=== PATIENT | male | born 1970 | race Caucasian/White ===

== ENCOUNTER 2020-12-04 14:32 | Emergency (ER) | payer BC, SELFPAY ==
[2020-12-04 14:33] VITALS: BP 149/89; PULSE 52; RESP 16; TEMP 36.8; O2SAT 94; BMI 24.7
--- NOTE | 2020-12-04 14:35 | HMH.EDSOB ---
ED Disposition Clinical Impression: Acute exacerbation of chronic obstructive airways disease Disposition: Home, Self-Care Condition on Discharge: Good Instructions: DI for Chronic Obstructive Pulmonary Disease Prescriptions: predniSONE [Prednisone 50mg Tab] 50 mg PO DAILY 5 Days #5 tab Transmission Status: Pending to [facility] Albuterol Sulfate [Proair Hfa] 8.5 gm IH QID PRN #1 [id number] PRN Reason: Shortness Of Breath Transmission Status: Pending to [facility] Azithromycin [Z-Noah 250mg Tab*] 250 mg PO UD DOSE PK #6 tab Transmission Status: Pending to [facility] Referrals: Lencho Vital MD [Primary Care Provider] - 3 days - Critical Care Critical Care Time: No Attestation: On , the high probability of a clinically significant, sudden or life threatening deterioration of the following system(s) required my full and direct attention, intervention and personal management. The time I documented below is in addition to time spent performing reported procedures but includes the following listed in this critical care notation. Medical Decision Making - Medical Records Medical records reviewed: Yes: I reviewed the patient's medical records. - Thomas Inquiry Pt receiving controlled substance: No Vital Signs: 12/04/20 14:33 12/04/20 15:33 Temperature 98.2 F Temperature Source Oral Pulse Rate [Right] 52 L 59 L Respiratory Rate 16 Blood Pressure [Right Arm] 149/89 H 129/91 H Blood Pressure Mean [Right Arm] 109 103 Blood Pressure Source [Right Arm] Automatic Cuff Automatic Cuff Blood Pressure Position [Right Arm] Sitting Sitting 02 Sat by Pulse Oximetry 94 L 91 L Oxygen Delivery Method Room Air - Lab Data Lab results reviewed: Yes: I reviewed the patient's lab results. Lab Results 12/04/20 15:42: WBC 8.0, RBC 5.14, Hgb 14.5, Hct 45.5, MCV 88.6, MCH 28.2, MCHC 31.9, RDW 12.7, Plt Count 294, MPV 7.1 L, Neut % (Auto) 65.1, Lymph % (Auto) 21.5, [place] % (Auto) 6.7, Eos % (Auto) 5.6, Baso % (Auto) 1.1, Neut # (Auto) 5.2, Lymph # (Auto) 1.7, [place] # (Auto) 0.5, Eos # (Auto) 0.5 H, Baso # (Auto) 0.1 12/04/20 15:42: Sodium 137, Potassium 4.3, Chloride 102, Carbon Dioxide 30, Anion Gap 9.3, BUN 20, Creatinine 0.90, Estimated Creat Clear 86, Estimated GFR 90, Est GFR ( Amer) 109, Glucose 114 H, Calcium 9.7 12/04/20 15:42: SARS-CoV-2 IgG Ab (Rapid) Negative, SARS-CoV-2 IgM Ab (Rapid) Negative Result diagrams: 12/04/20 15:42 12/04/20 15:42 Orders (Tests/Meds): ED MEDICATIONS Discontinued Medications Generic Name Dose Route Start Last Admin Trade Name Freq PRN Reason Stop Dose Admin Albuterol/Ipratropium 3 ml 12/04/20 14:39 12/04/20 15:52 Albuterol/Ipratropium 3 Ml Neb IH 12/04/20 14:40 Not Given ONCE ONE Albuterol/Ipratropium 2 puff 12/04/20 15:52 12/04/20 15:45 Combivent 20mcg/100mcg Respimat Inhaler 12/04/20 15:53 2 puff ONCE ONE Administration Dexamethasone 10 mg 12/04/20 15:13 Dexamethasone 4mg Tablet PO 12/04/20 15:14 ONCE ONE Dexamethasone Sodium Phosphate 10 mg 12/04/20 15:37 12/04/20 15:49 Dexamethasone 4mg/Ml 5ml Mdv IM 12/04/20 15:38 10 mg ONCE ONE Administration Methylprednisolone Sodium Succinate 125 mg 12/04/20 14:39 Methylprednisolone Sod Succ 125mg Vial IV 12/04/20 14:40 ONCE ONE Miscellaneous 1 unit 12/04/20 15:52 Aerochamber/Optihaler MC 12/04/20 15:53 ONCE ONE - Radiology Data #1 Image(s): Chest Image Reviewed: Yes I reviewed the patient's radiology results, Yes I reviewed the patient's radiology image COPD with biapical pleural thickening and faint opacity in the right upper lobe. Consider chest CT with contrast for further evaluation. Medical Decision Narrative: Patient with wheezing bilaterally, maintaining appropriate oxygen saturations on room air. No significant metabolic derangement or anemia. No leukocytosis or fever that would suggest acute infectiou
--- NOTE | 2020-12-04 14:39 | XR_ITS ---
PROCEDURE: XR CHEST 2V CLINICAL HISTORY: soa Shortness of air, smoker COMPARISON: No exams were available for comparison FINDINGS: The cardiomediastinal silhouette and pulmonary vascularity are within normal limits. COPD. Biapical pleural thickening. Asymmetric thickening noted in the right apex. There is a faint area of increased density in the right suprahilar region. This area measures approximately 16 by 10 mm. The remaining lungs are clear. Degenerative changes of the spine. IMPRESSION: COPD with biapical pleural thickening and faint opacity in the right upper lobe. Consider chest CT with contrast for further evaluation. Dictated by: Igor Gillis MD 12/04/2020 16:14 Igor Gillis MD in [place] 12/04/2020 16:14
[2020-12-04 15:33] VITALS: BP 129/91; PULSE 59; O2SAT 91
[2020-12-04 16:00] VITALS: BP 119/69; PULSE 50; O2SAT 93
[2020-12-04 16:06] LABS: Basophils # 0.1 K/mm3 (0-0.2); Basophils % 1.1 % (0.1-2.0); Eosinophils # 0.5 K/mm3 (0.0-0.4); Eosinophils % 5.6 % (0.1-12.0); Hematocrit 45.5 % (42.0-52.0); Hemoglobin 14.5 g/dL (14.1-18.0); Lymphocytes # 1.7 K/mm3 (0.7-4.5); Lymphocytes % 21.5 % (10-50); Mean Corpuscular HGB Conc 31.9 g/dL (31.8-35.4); Mean Corpuscular Hemoglobin 28.2 pg (27.0-31.2); Mean Corpuscular Volume 88.6 fl (80-94); Mean Platelet Volume 7.1 fl (7.4-10.4); Monocytes # 0.5 K/mm3 (0.1-1.0); Monocytes % 6.7 % (1.7-9.3); Neutrophils # 5.2 K/mm3 (1.8-7.8); Neutrophils % 65.1 % (37.0-80.0); Platelet Count 294 K/mm3 (142-424); Red Blood Count 5.14 M/mm3 (4.60-6.20); Red Cell Distribution Width 12.7 % (11.5-17.5)
[2020-12-04 16:08] LABS: Chloride 102 mmol/L (98-107)
[2020-12-04 16:09] LABS: Potassium 4.3 mmoL/L (3.5-5.1); Sodium 137 mmol/L (136-145)
[2020-12-04 16:11] LABS: Blood Urea Nitrogen 20 mg/dl (9-20); Creatinine Clearance Estimated 86 mL/min (50-200); Estimated Glomerular Filt Rate 90 ml/min (>60); GFR (African American) 109 ML/MIN (>60)
[2020-12-04 16:12] LABS: Anion Gap 9.3 mEq/L (5-15); Calcium 9.7 mg/dl (8.4-10.2); Carbon Dioxide 30 mmol/L (22.0-30.0); Glucose 114 mg/dl (74-100)
[2020-12-04 16:24] LABS: Coronavirus 19 IgG Antibody Negative (Negative); Coronavirus 19 IgM Antibody Negative (Negative)
[2020-12-04 16:30] VITALS: BP 122/71; PULSE 50; O2SAT 93
[2020-12-04 16:57] VITALS: BP 127/83; PULSE 54; RESP 16; TEMP 36.6; O2SAT 96
== END 2020-12-04 16:58 | disposition home or self-care (01) ==
PROVIDERS: Emergency Provider Emergency Medicine; PCP Family Medicine
DX: J44.1 Chronic obstructive pulmonary disease with (acute) exacerbation (principal); Z01.84 Encounter for antibody response examination; F17.210 Nicotine dependence, cigarettes, uncomplicated; Z79.899 Other long term (current) drug therapy
CPT/HCPCS: 71046; 80048; 85025; 86328; 96372; 99283

== ENCOUNTER → 2021-10-20 10:39 | Outpatient (CLI) | payer BC, SELFPAY | PROVIDERS: PCP Family Medicine; Visit Provider Nurse Practitioner | DX: U07.1 COVID-19 (principal) | CPT/HCPCS: C9803; U0003; U0005 ==